=== PATIENT | male | born 1950 | race African-American/Black ===

== ENCOUNTER 2020-12-08 05:19 | Day surgery (SDC) | payer MEDICARE, MEDICAID ==
[2020-12-01 15:16] LABS: BASOPHILS % (AUTO) 0.1 % (0-1); EOSINOPHILS % (AUTO) 0.5 % (0-6); LYMPHOCYTES # (AUTO) 1.2 X10'3 (1.1-4.8); LYMPHOCYTES % (AUTO) 15.3 % (21-51); MEAN CORPUSCULAR HEMOGLOBIN 36.2 PG (27.0-31.0); MEAN CORPUSCULAR HGB CONC 32.9 g/dL (33.0-36.5); MEAN CORPUSCULAR VOLUME 109.8 FL (78-98); MEAN PLATELET VOLUME 7.8 FL (7.4-10.4); MONOCYTES # (AUTO) 0.6 X10'3 (0-0.9); MONOCYTES % (AUTO) 7.6 % (2-12); NEUTROPHILS # (AUTO) 6.1 X10'3 (1.8-7.7); NEUTROPHILS % (AUTO) 76.5 % (42-75); PRE OP HEMATOCRIT 35.6 % (42.0-52.0); PRE OP HEMOGLOBIN 11.7 g/dL (14.0-17.9); PRE OP PLATELET COUNT 164 X10'3 (140-440); RED BLOOD COUNT 3.25 X10'6 (4.70-6.10); RED CELL DISTRIBUTION WIDTH 15.9 % (11.5-14.5)
[2020-12-01 15:22] LABS: CLARITY,URINE CLEAR (Clear); COLOR,URINE YELLOW (Yellow); GLUCOSE, URINE NEGATIVE (Neg); KETONES,URINE TRACE mg/dl (Neg); LEUKOCYTE ESTERASE ,URINE NEGATIVE (Neg); NITRITES, URINE NEGATIVE (Neg); OCCULT BLOOD,URINE NEGATIVE (Neg); PH,URINE 5.5 (4.8-8.0); PROTEIN,URINE NEGATIVE (Neg); UA COLLECTION TYPE CLN CATCH MIDSTREAM
[2020-12-01 15:31] LABS: ALBUMIN 2.3 G/DL (3.4-5.0); ALBUMIN/GLOBULIN RATIO 0.6 (1.1-1.5); ALKALINE PHOSPHATASE 84 IU/L (46-116); BLOOD UREA NITROGEN 20 MG/DL (7-18); BUN/CREATININE RATIO 18.9 (5.4-32.0); CHLORIDE 108 MMOL/L (99-107); CREATININE 1.06 MG/DL (0.60-1.10); PRE OP ALT 11 U/L (30-65); PRE OP ANION GAP 13 (8-16); PRE OP AST 14 U/L (10-37); PRE OP BILIRUB, TOTAL 0.3 MG/DL (0.0-1.0); PRE OP GLUCOSE 98 MG/DL (70-104); PRE OP POTASSIUM 3.5 MMOL/L (3.4-5.1); PRE OP SODIUM 143 MMOL/L (135-145); TOTAL CARBON DIOXIDE 22.5 MMOL/L (24-32); TOTAL PROTEIN 6.4 G/DL (6.4-8.2); eGFR 83 ML/MIN
[2020-12-08] VITALS (7 sets, daily range): BP systolic 146–157; BP diastolic 98–105
[~2020-12-08] VITALS: Ht 177.8 cm; Wt 58.9 kg
[~2020-12-08 05:19] MED LIST: METO-395 PO; OMEP-50 PO; TIOT18CA3 INH; ringers solution, lacted 1,000 ML IV SCH
[2020-12-08] MEDS ORDERED: cefazolin/dext.iso 2gm/100ml IV ONE (05:30)
[2020-12-08] MEDS ORDERED: famotidine 20mg tablet PO ONE (05:30)
[2020-12-08] MEDS ORDERED: DOCUMENT DATE & TIME OF BETA-BLOCKER PO ONE (05:30)
[2020-12-08] MEDS ORDERED: bacitracin 15gm ointment TP ONE (06:51)
[2020-12-08] MEDS ORDERED: BUPIVAcaine 0.5% inj/PF 30 ML ONE (06:51)
[2020-12-08] MEDS ORDERED: fentaNYL/PF 50MCG/1 ML 2ML syringe ONE (07:17)
[2020-12-08] MEDS ORDERED: dexamethasone sod phosphate 4mg/ml inj. ONE (07:36)
[2020-12-08] MEDS ORDERED: neostigmine methylsulfate 1 MG/ML 10ml vial ONE (07:36)
[2020-12-08] MEDS ORDERED: ondansetron/PF 4mg/2ml inj ONE (07:36)
[2020-12-08] MEDS ORDERED: rocuronium 10mg/ml inj IV ONE (07:36)
[2020-12-08] MEDS ORDERED: LIDOcaine 2% (20mg/ml) 5ml vial ONE (07:36)
[2020-12-08] MEDS ORDERED: propofol inj 20 ML IV ONE (07:36)
[2020-12-08] MEDS ORDERED: glycopyrrolate 0.2mg/ml inj ONE (07:36)
[2020-12-08] MEDS ORDERED: sugammadex 200mg/2ml injection IV ONE (07:41)
--- NOTE | 2020-12-08 07:48 | NUR ---
Received from OR via [facility], accompanied by Anesthesiologist DR CONLEY and report given by Anesthesiologist. PT DROWSY, DENIES PAIN, LEFT FOOT FROM TOES TO ABOVE ANKLE W/JONATHAN WRAP COVERING CDI. 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 Addendum: 12/08/20 at 0813 by Makayla Moss RN Amended: Links added.
[2020-12-08] MEDS ORDERED: ringers solution, lacted 1,000 ML IV SCH (08:00)
[2020-12-08] MEDS ORDERED: HYDROmorphone/PF 0.2 MG/ML SYRINGE IV PRN (08:00)
[2020-12-08] MEDS ORDERED: morphine 2 MG/ML inj. syringe IV PRN (08:00)
[2020-12-08] MEDS ORDERED: ondansetron/PF 4mg/2ml inj IV PRN (08:00)
--- NOTE | 2020-12-08 08:00 | NUR ---
REPORT RECEIVED FROM RAJINDER SMITH ASSUMED
--- NOTE | 2020-12-08 08:45 | NUR ---
DISCHARGE CRITERIA MET, DISCHARGE INSTRUCTIONS GIVEN, DEMONSTRATES VERBAL UNDERSTANDING. DISCHARGED HOME IN GOOD CONDITION.
== END 2020-12-08 08:45 | disposition home or self-care (01) ==
LOC: PAS 05:19
PROVIDERS: ATTEND Podiatrist Foot & Ankle Surgery
DX: M86.8X7 Other osteomyelitis, ankle and foot (principal); E11.621 Type 2 diabetes mellitus with foot ulcer; I69.351 Hemiplegia and hemiparesis following cerebral infarction affecting right dominant side; J44.9 Chronic obstructive pulmonary disease, unspecified; I10 Essential (primary) hypertension; K21.9 Gastro-esophageal reflux disease without esophagitis; F17.210 Nicotine dependence, cigarettes, uncomplicated; Z98.890 Other specified postprocedural states; Z79.899 Other long term (current) drug therapy; Z88.8 Allergy status to other drugs, medicaments and biological substances; Z88.5 Allergy status to narcotic agent; Z79.2 Long term (current) use of antibiotics; Z72.89 Other problems related to lifestyle; Z20.822 Contact with and (suspected) exposure to COVID-19
CPT/HCPCS: 28820; 36415; 80053; 81003; 82948; 85025; 93005; A6222; A6223; C9399; J1100; J2001; J2405; J2704; J2710; J3010; U0003; U0005; Z7506; Z7512; A4618; A6449; A7000; J3490; J7120